=== PATIENT | male | born 1975 | race Caucasian/White ===

== ENCOUNTER 2016-10-08 18:52 | Emergency (ER) | payer BC ==
--- NOTE | ~2016-10-08 | CT71 ---
[facility] A Service [facility] RADIOLOGY TEXT RESULTS PATIENT: MEENA STANTON LOCATION: [facility] : 73 UNIT #: [id number] AGE: [address]: En Cummings MD SEX: M ORDER DR: [id number] [address] [place], [place] [address] [id number] MR#: [id number] Acc #: [id number] NAME: MEENA STANTON : 1975 SEX: M STUDY DATE/TIME: 10/08/2016 20:19 UNIT: [facility] ROOM: STUDY DESCRIPTION: CT Head Wo Contrast Attending Physician: En Cummings M.D. Ordering Physician: En Cummings M.D. MEDICAL IMAGING REPORT This report is preliminary unless electronic signature is present EXAM Head CT without contrast HISTORY Syncopal episode today with intermittent headaches over the past 3 weeks. COMPARISON 01/01/2011. TECHNIQUE Axial noncontrast images were obtained from the skull base to the vertex. This CT exam was performed with one or more of the following radiation dose reduction techniques: automatic exposure control, adjustment of mA and/or kV according to patient size, and iterative reconstruction. FINDINGS Ventricular size and configuration are normal. There is no evidence of acute infarct or hemorrhage. There are no extraaxial fluid collections. No mass lesion or mass effect is seen. There are no skull fractures. IMPRESSION Normal noncontrast head CT. Dictated by... Jonathan Flores M.D. THIS IS AN ELECTRONICALLY VERIFIED REPORT Jonathan Flores M.D. at 10/08/2016 10:19 PM RLF/pcl [facility] A Service [facility] RADIOLOGY TEXT RESULTS PATIENT: MEENA STANTON LOCATION: [facility] : 73 UNIT #: [id number] AGE: [address]: En Cummings MD SEX: M ORDER DR: TD: 10/08/2016 21:18 JOB #: [id number] MEDICAL IMAGING REPORT Page 1 of 1 COPY
--- NOTE | ~2016-10-08 | CR72 ---
[facility] A Service of [facility] RADIOLOGY TEXT RESULTS PATIENT: MEENA STANTON LOCATION: [facility] : 73 UNIT #: [id number] AGE: [address]: En Cummings MD SEX: M ORDER DR: [id number] [place], [place] [address] [id number] E MR#: [id number] Acc #: [id number] NAME: MEENA STANTON : 1975 SEX: M STUDY DATE/TIME: 10/08/2016 20:33 UNIT: [facility] ROOM: STUDY DESCRIPTION: CR Chest Single View Portable Attending Physician: En Cummings M.D. Ordering Physician: En Cummings M.D. MEDICAL IMAGING REPORT This report is preliminary unless electronic signature is present EXAM Portable chest HISTORY Syncope with cough. Symptoms began today. COMPARISON 05/05/2016. TECHNIQUE Single view of the chest was obtained. FINDINGS A single AP portable view of the chest shows both lungs to be clear. The heart is normal in size. The mediastinal contour is normal. No significant bone abnormalities are seen. IMPRESSION Normal portable chest. Dictated by... Jonathan Flores M.D. THIS IS AN ELECTRONICALLY VERIFIED REPORT Jonathan Flores M.D. at 10/08/2016 10:19 PM RLF/pcl TD: 10/08/2016 21:22 JOB #: [id number] MEDICAL IMAGING REPORT [facility] A Service of [facility] RADIOLOGY TEXT RESULTS PATIENT: MEENA STANTON LOCATION: [facility] : 73 UNIT #: [id number] AGE: [address]: En Cummings MD SEX: M ORDER DR: Page 1 of 1 COPY
--- NOTE | ~2016-10-08 | EKG ---
PATIENT: MEENA STANTON UNIT #: [id number] Ventricular Rate: 85 BPM Atrial Rate: 85 BPM P-R Interval: 128 ms QRS Duration: 94 ms Q-T Interval: 394 ms QTC Calculation(Bezet): 468 ms P [place]: 46 degrees Calculated R [place]: -44 degrees Calculated T [place]: -2 degrees Diagnosis Line: Normal sinus rhythm Diagnosis Line: Left axis deviation Diagnosis Line: Voltage criteria for left ventricular hypertrophy Diagnosis Line: Abnormal ECG Diagnosis Line: When compared with ECG of 05-MAY-2016 22:07, Diagnosis Line: No significant change was found Diagnosis Line: Confirmed by LE SALES MD ([id number]) on 10/10/2016 Diagnosis Line: 10:32:43 AM INTERPRETING MD: HENRRY CARTAGENA
[~2016-10-08 18:52] MED LIST: FLEXERIL PO; LISINOPRIL PO; LISINOPRIL20 MG PO; NORCO 10-325 TA1 TAB PO; PERCOCET10 PO; VICODIN 5/500 T1 TAB PO; VICODIN PO; ZESTORETIC 20/21 TAB PO
[2016-10-08] MEDS ORDERED: PRAVACHOL PO (19:01)
[2016-10-08] MEDS ORDERED: ZESTORETIC 20-1 EAC2 PO (19:01)
[2016-10-08] MEDS ORDERED: ZOLOFT PO (19:02)
[2016-10-08 19:59] LABS: BASOPHIL# 0.1 X10e3 (0-0.3); BASOPHIL% 0.6 % (0-2.5); EOSINOPHIL# 0.2 X10e3 (0-0.7); EOSINOPHIL% 0.9 % (0.0-7.0); HEMATOCRIT 51.4 % (38.0-50.0); HEMOGLOBIN 16.9 gm/dL (13.0-16.0); LYMPHOCYTE# 1.7 X10e3 (1.0-3.5); MEAN CORPUSCULAR HEMOGLOBIN 29.5 PG (28-34); MEAN CORPUSCULAR HGB CONC 32.8 g/dL (30-36); MONOCYTE# 1.7 X10e3 (0-1.0); MONOCYTE% 9.9 % (3.0-12.0); NEUTROPHIL# 13.2 X10e3 (1.5-7.1); NEUTROPHIL% 78.6 % (40-75); PLATELET COUNT 232 X10e3 (140-420); RED BLOOD COUNT 5.72 X10e (3.90-5.60); RED CELL DISTRIBUTION WIDTH 13.9 % (11.0-15.5); WHITE BLOOD COUNT 16.8 X10e3 (4.0-10.5)
[2016-10-08 20:00] LABS: DIFF IND YES
[2016-10-08 20:10] LABS: PARTIAL THROMBOPLASTIN TIME 24.5 SECONDS (23.5-31.3); PROTHROMBIN TIME (PATIENT) 10.3 SECONDS (9.6-11.5)
[2016-10-08 20:19] LABS: ALBUMIN SERUM 4.4 g/dL (3.5-5.0); ALKALINE PHOSPHATASE 101 U/L (32-92); ALT (SGPT) 37 U/L (10-40); AST (SGOT) 29 U/L (10-42); BILIRUBIN, DIRECT 0.1 mg/dL (0.0-0.2); BILIRUBIN,INDIRECT 0.6 mg/dL (0.0-0.9); BILIRUBIN,TOTAL 0.7 mg/dL (0.2-2.0); BLOOD UREA NITROGEN 17 mg/dL (9-23); BUN/CREATININE RATIO 18.88; CARBON DIOXIDE 22 mmol/L (22-31); CHLORIDE 105 mmol/L (100-111); CREATININE SERUM 0.9 mg/dL (0.6-1.4); GLOM FILT RATE Estimated 105.7 mL/min (>60); GLUCOSE FASTING 113 mg/dL (70-110); POTASSIUM 3.8 mmol/L (3.5-5.1); SODIUM 139 mmol/L (135-145)
[2016-10-08 20:21] LABS: ALCOHOL BLOOD <5 mg/dL (0)
[2016-10-08 20:40] LABS: ANISOCYTOSIS SL; PLATELET ESTIMATE NORMAL (NORMAL)
[2016-10-08 20:55] LABS: AMPHETAMINE NEG (NEG); BARBITURATES NEG (NEG); BENZODIAZEPINES NEG (NEG); COCAINE NEG (NEG); MARIJUANA POS (NEG); OPIATES NEG (NEG); TRICYCLIC ANTIDEPRESSANTS NEG (NEG); U METHADONE NEG (NEG)
[2016-10-08 21:39] LABS: POC - CKMB <1.0 ng/mL (0.0-7.9); POC - TROPONIN <0.05 ng/mL (<=0.05)
[2016-10-08 21:39] LABS: POC - CKMB <1.0 ng/mL (0.0-7.9); POC - TROPONIN <0.05 ng/mL (<=0.05)
== END 2016-10-08 22:00 | disposition home or self-care (01) ==
LOC: CED 18:52
PROVIDERS: Emergency Medicine
DX: R55 Syncope and collapse (principal); F41.9 Anxiety disorder, unspecified; I10 Essential (primary) hypertension
CPT/HCPCS: 70450; 71010; 80048; 80076; 80307; 82553; 82947; 84484; 85025; 85610; 85730; 93005; 96360; 99284; G0480